=== PATIENT | female | born 1935 | race Caucasian/White ===

== ENCOUNTER 2017-02-11 10:57 | Day surgery (SDC) | payer MEDICARE ==
[~2017-02-11] VITALS: Ht 162.6 cm; Wt 54.0 kg
[~2017-02-11 10:57] MED LIST: ATEN1TAB74 PO; CALC600T34 PO; RISE30 PO
[2017-02-11 12:02] VITALS: BP 146/73; PULSE 65; RESP 18; TEMP 98; O2SAT 96
[2017-02-11] MEDS ORDERED: BRIM0.2S4 EACH EYE (12:23)
[2017-02-11] MEDS ORDERED: DESM1SPR NASAL (12:23)
[2017-02-11] MEDS ORDERED: HYDR-2376 PO (12:23)
[2017-02-11] MEDS ORDERED: PRED50 PO (12:23)
[2017-02-11] MEDS ORDERED: BENA25TA3 PO (12:23)
[2017-02-11] MEDS ORDERED: LISI40TA PO (12:23)
[2017-02-11] MEDS ORDERED: OMEGCAP PO (12:23)
[2017-02-11] MEDS ORDERED: TERB250T4 PO (12:23)
[2017-02-11] MEDS ORDERED: HEPARIN-NS/PF INJ 500 ML ONE (12:46)
[2017-02-11] MEDS ORDERED: MIDAZOLAM HCL 2 MG/2 ML VIAL ONE (12:50)
[2017-02-11] MEDS ORDERED: HEPARIN SODIUM - IV 10,000 UNITS/10 ML VIAL ONE (13:02)
[2017-02-11] MEDS ORDERED: SODIUM CHLOR 0.9% 250 ML INJ 250 ML IV PRN (13:30)
[2017-02-11] MEDS ORDERED: METOCLOPRAMIDE HCL 10 MG/2 ML VIAL IV PRN (13:30)
[2017-02-11] MEDS ORDERED: BACITRACIN OINT 0.9 GM PKT TOP ONE (13:30)
[2017-02-11] MEDS ORDERED: ONDANSETRON HCL 4 MG/2 ML VIAL IV PRN (13:30)
[2017-02-11] MEDS ORDERED: ATROPINE SULFATE 1 MG/ML VIAL IV PRN (13:30)
[2017-02-11] MEDS ORDERED: LIDOCAINE HCL 1% 50 ML VIAL INFIL PRN (13:30)
[2017-02-11] MEDS ORDERED: LORazepam 2 MG/ML VIAL IV PRN (13:30)
[2017-02-11] MEDS ORDERED: MISC INFORMATION XX ONE (13:30)
--- NOTE | 2017-02-11 13:33 | CATHPROC ---
Patient Name: REENA SALDAÑA Study #: [id number] Initial MD: Tim Oviedo Date of : 1935 Study Date: 02/11/2017 Cardiac Catheterization Report 02/11/2017 1:27:05 PM Financial #: [id number] 1 of 10 Patient Name: REENA SALDAÑA Study #: [id number] Initial MD: Tim Oviedo Date of : 1935 Study Date: 02/11/2017 Entire Case Report Patient Information Patient Name REENA SALDAÑA Date of 1935 Age 81 years Financial # [id number] Gender F AlternateID Lab Number 5 Accession # Room Number Height (in) 66.0 Height (cm) 167.6 BSA 1.62 Weight (lbs) 122.0 Weight (kg) 55.5 Patient Address/Phone Number Home Address [facility] Home Phone Number [phone] [facility] [id number] Study Information Study Number Scheduled Start Study Start [id number] 02/11/2017 Feb 11 2017 12:28PM Referring Institution Admit Source Facility Department 1 [facility] [employer] Physician and Clinical Staff Initial Tim Elliott Gis Application Developer Rafia Patel,MAILE Gis Application Developer Santosh Harris,MAILE Recorder John Mccord,RT(R) Scrub Jeffrey PatinoRT(R) Procedures Performed Procedure Location (Site) Vessel Name Angiogram (manual) Fem R. Com (R7) Femoral Art Angiogram (manual) Iliac R. Com. (R4) Illiac Art. Angiogram (manual) Popliteal R (R10) Popliteal Angiogram (manual) SFA (right) Femoral Art Angiogram (manual) Tib, Ant. (right) Popliteal Wire insertion Fem Art (left) Femoral Art 02/11/2017 1:27:05 PM Financial #: [id number] 2 of 10 Patient Name: REENA SALDAÑA Study #: [id number] Initial MD: Tim Oviedo Date of : 1935 Study Date: 02/11/2017 Equipment Time Policy Writer Sales Description Size Mfg Part Number Used/Scraped 12:43 CORDIS/ SAVANNAH RIM SUPER TORQUE CATHETER FR 5 [id number] Used 13:17 DAIG/ST. ROMAN MEDICAL ANGIOSEAL, FR6 VIP FR 6 [id number] Used 12:43 MALLINCKRODT SYRINGE, ANGIOMAT 150ML 150ML [id number] Used 12:43 MEDLINE INDUSTRIES PACK, CCL CUSTOM * [id number] Used 12:43 MEDLINE PACER PEN, SKIN DUAL W/ RULER * [id number] Used 12:43 Solar [employer] MEDICAL WIRE, EXCHANGE 260CM 3MMJ 260CM [id number] Used 12:43 NAMIC MANIFOLD, 4 PORT * [id number] Used 12:43 NAMIC TUBING, HIGH PRESSURE 48" 48" [id number] Used 13:04 NAMIC TUBING, HIGH PRESSURE 48" 48" [id number] Used 12:43 NYCOMED OMNIPAQUE, 300 MG, 100ML 100ML [id number] Used 12:43 NYCOMED OMNIPAQUE, 300 MG, 100ML 100ML [id number] Used 12:43 THOMAS MEDICAL BLANKET,WARM AIR CCL * [id number] Used 12:43 TERUMO MEDICAL SHEATH, FR5 TERUMO (10CM) FR 5 [id number] Used SHEATH, FR6 PINNACLE 13:01 TERUMO MEDICAL/SAVANNAH FR 6 [id number] Used DESTINATION 90CM WIRE, ANGLE GLIDE STIFF .035 12:43 TERUMO MEDICAL/SAVANNAH 260CM [id number] Used 260CM Equipment Model, Serial, Lot Number and Expiration Data Description Model Number Serial Number Lot Number Expiration Date ANGIOSEAL, FR6 VIP [id number] 11-06-2017 Insurance Information Insurance Payor Private Health Insurance Third Alliance Party Third Alliance Party Number [facility] [id number] History: Current Medications Medication Dosage/Unit Route Frequency Last Date/Time Taken LISINOPRIL TAGAMET 02/11/2017 1:27:05 PM Financial #: [id number] Patient Name: REENA SALDAÑA Study #: [id number] Initial MD: Tim Oviedo Date of : 1935 Study Date: 7 History: Allergies Allergy Reaction Dilaudid fast heart rate ivpdye rash novacaine rash tape odom Keflex Meloxicam Methotrexate Sulfa Fosamax History: Risk Factors Family History of Hypertension Dyslipidemia Previous PR Previous Heart Failure Premature CAD Yes Yes No No No Prior Valve Prior PCI Prior CABG Surgery No No No Cerebrovascular Peripheral Artery Chronic Lung On Dialysis Diabetes Disease Disease Disease No No Yes No No History: Stress Tests Stress or Imaging Studies Performed No History: Other Disease Selection Items HTN History: Other Current Smoker No Labs Hgb (g/dl) Hct (%) RBC (MIL/MM3) WBC (l/cumm) Platelets (thousands) 12.00-18.00 37.00-55.00 4.80-6.20 4.80-10.80 140.00-450.00 12.7 38.3 4.7 11.2 354 Glucose (mg/dl) BUN (mg/dl) Creatinine (mg/dl) BUN:Creatinine (1:x) 60.00-110.00 8.00-20.00 0.10-9.00 10.00-20.00 105 13 0.6 21.7 02/11/2017 1:27:05 PM Financial #: [id number] Patient Name: REENA SALDAÑA Study #: [id number] Initial MD: Tim Oviedo Date of : 1935 Study Date: 017 Na (meq/l) K (meq/l) Cl (meq/l) CO2 (mmol/L) Ca (mg/dl) 138.00-146.00 3.80-5.10 101.00-111.00 23.00-30.00 9.00-10.50 134 4.6 95 22 9.1 PT (sec) INR (PTT:PT) 9.40-11.40 0.50-2.00 10.1 1 CPK-MB (ng/ML) 0.00-7.00 Not Drawn Medication Medication Total Dose (Bolus/Oral) Medication Total Dosage/Unit 1% XYLOCAINE 20 mL FENTANYL 50 mcg HEPARIN 3000 units VERSED 2 mg Medications (Bolus/Oral) Medication Time Given Dosage/Unit Administered By Reason VERSED 02/11/2017 12:52:49 PM 1 mg Santosh Harris 1 mg VERSED given in lab by Santosh Harris RN in Right Antecubital via Peripheral IV. FENTANYL 02/11/2017 12:52:53 PM 50 mcg Santosh Harris 50 mcg FENTANYL given in lab by Santosh Harris, MAILE in Right Antecubital via Peripheral IV. 1% XYLOCAINE 02/11/2017 12:53:37 PM 20 mL Tim Oviedo 20 mL 1% XYLOCAINE given in lab by Tim Oviedo in Left Groin via Subcutaneous. VERSED 02/11/2017 12:59:15 PM 1 mg Santosh Harris 1 mg VERSED given in lab by Santosh Harris, MAILE in Right Antecubital via Peripheral IV. HEPARIN 02/11/2017 1:03:08 PM 3000 units Santosh Harris 3000 units HEPARIN given in lab by Santosh Harris RN in Right Antecubital via Peripheral IV. Medication (Drip) Medication Time Given Dosage/Unit Concentration/Unit Diluent (ml) Solutio n IV Solutions 02/11/2017 12:40:16 PM 0 mL (IV) 500 NaCl .9 IV Solutions given in lab by Rafia Patel RN in Right Antecubital via Peripheral IV. Pump/Drip Fl ow = 20 ml/hr using NaCl .9. 02/11/2017 1:27:05 PM Financial #: [id number] Patient Name: REENA SALDAÑA Study #: [id number] Initial MD: Tim Oviedo Date of : 1935 Study Date: 02/11/2017 Initial Case Assessment Cardiovascular HR Rhythm NIBP Chest Pain 72 Sinuis 143/117 0 Edema Present Skin color Skin None Normal Warm Dry Circulatory - Right Pulses Dorsalis Pedis Posterior Tibial Femoral 0 0 2 Scale (0,1,2,3,4,d) Circulatory - Left Pulses Dorsalis Pedis Posterior Tibial Femoral d d 2 Scale (0,1,2,3,4,d) Neurological State Oriented to time-place- Alert Moves all extremities person Respiration - General Respiration Rate SpO2 (%) O2 (lpm) (B/min) 19 98 0 Final Case Assessment Circulatory - Right Pulses Dorsalis Pedis Posterior Tibial Femoral 1 1 2 Scale (0,1,2,3,4,d) Circulatory - Left Pulses Dorsalis Pedis Posterior Tibial Femoral d d 2 Scale (0,1,2,3,4,d) Neurological State Oriented to time-place- Alert Moves all extremities person Respiration - General Respiration Rate SpO2 (%) O2 (lpm) (B/min) 18 98 0 02/11/2017 1:27:05 PM Financial #: [id number] 6 of 10 Patient Name: REENA SALDAÑA Study #: [id number] Initial MD: Tim Oviedo Date of : 1935 Study Date: 02/11/2017 Vitals Summary Pain Time HR NIBP SpO2 Resp Temp EtCO2 Apnea Dino Rendon Comment Level 12:33:33 143/117 98.0 10 0 2 12:38:38 85 178/100 99.0 21 10 0 2 12:43:07 79 161/84 97.0 17 10 0 2 12:48:02 83 175/87 97.0 15 10 0 2 12:53:03 65 164/95 98.0 13 10 0 2 12:58:04 83 140/87 96.0 18 10 0 2 13:03:01 80 146/76 90.0 19 10 0 2 13:08:02 83 136/74 91.0 14 10 0 2 13:12:57 78 146/93 97.0 18 10 0 2 13:18:02 82 138/83 98.0 15 10 0 2 13:23:40 79 148/91 99.0 18 10 0 2 Dino Score Summary Time Activity Resp Circ LOC Color Total Score 12:33:33 2 2 2 2 2 10 12:38:38 2 2 2 2 2 10 12:43:07 2 2 2 2 2 10 12:48:02 2 2 2 2 2 10 12:53:03 2 2 2 2 2 10 12:58:04 2 2 2 2 2 10 13:03:01 2 2 2 2 2 10 13:08:02 2 2 2 2 2 10 13:12:57 2 2 2 2 2 10 13:18:02 2 2 2 2 2 10 13:23:40 2 2 2 2 2 10 02/11/2017 1:27:05 PM Financial #: [id number] 7 of 10 Patient Name: REENA SALDAÑA Study #: [id number] Initial MD: Tim Oviedo Date of : 1935 Study Date: 02/11/2017 Dino Score Definition Table Activity - 0 Activity - 1 Activity - 2 No Movement to Command Weak Hand Grasp Lift Head, Good Hand Grasp Respiration - 0 Respiration - 1 Respiration - 2 Apneic or Obstructed Shallow Breath, Airway Adjunct Deep Breath, Cough Freely Circulation - 0 Circulation - 1 Circulation - 2 B/P > 50% Admission B/P B/P > 20-50% Admission B/P B/P Stable X3 Level of Consciousness - 0 Level of Consciousness - 1 Level of Consciousness - 2 Not Responding Arousable On Calling Awake and Aware Color - 0 Color- 1 Color - 2 Cyanotic Lips, Nailbed, Skin Pale, Dusky [place] Or Normal Chronological Log Time Study Chronological Log 12:28:03 Patient arrived via Bed. 12:28:05 Patient Name, D.O.B, / Armband Verified By R.N. 12:28:06 Consent signed by the physician and the patient and verified by the [employer] staff. 12:28:07 Pre-op and post- op instructions given; patient acknowledges understanding of instruction s. 12:28:07 Verbal Stimulation=2 Physical Stimulation=2 Airway=2 Respiration=2 TOTAL=8. (0=absent, 1= limited, 2=present) Vitals capture started with the following parameters, Patient=Adult, Interval=5 min, Initial Tcrpwgur=650 mmHg, 12:32:25 Deflation Rate=5 mmHg 12:33:33 DUHI=234/117 mmhg, SpO2=98.0 %, Pain=0, Dino=10, Rendon=2 12:38:14 MD arrived. 12:38:38 HR=85 bpm, TAPV=511/100 mmhg, SpO2=99.0 %, Resp=21 B/min, Pain=0, Dino=10, Rendon=2 12:39:15 Presedation assessment performed by Wholesale [employer] Retail Merchant RN. 12:39:22 Patient has been NPO for More than 6Hrs. 12:39:23 Skin Breakdown- right lower leg wounds. Wrapped in bandage to foot. 12:39:52 Patient Warmer Placed on the Table. 12:39:54 João Prominences Protected 12:39:57 A # 20 IV was noted in the Antecubital (right). Grade = 0 IV Solutions given in lab by Rafia Patel, RN in Right Antecubital via Peripheral IV. Pump /Drip Flow = 20 ml/hr 12:40:16 using NaCl .9. 12:40:50 History and physical on the chart or being dictated. Assessment: Initial Case, HR=72 BPM, Rhythm=Sinuis, AUKS=976/117 mmhg, Chest Pain=0, Edema=No ne, Color=Normal, Skin = Warm, Dry Right Pulses: Lowell Ped=0, Post Tib=0, Femoral=2 12:40:51 Left Pulses: Lowell Ped=d, Post Tib=d, Femoral=2 Neurological: State=Alert, Ox3, SANDOVAL Respiration: Resp=19 B/min, SpO2=98 %, O2=0 lpm 12:43:07 HR=79 bpm, MEGG=048/84 mmhg, SpO2=97.0 %, Resp=17 B/min, Pain=0, Dino=10, Rendon=2 12:48:02 HR=83 bpm, EMLV=992/87 mmhg, SpO2=97.0 %, Resp=15 B/min, Pain=0, Dino=10, Rendon=2 02/11/2017 1:27:05 PM Financial #: [id number] Patient Name: REENA SALDAÑA Study #: [id number] Initial MD: Tim Oviedo Date of : 1935 Study Date: 02/11/2017 12:48:59 Bilateral groins prepped with 2% chlorhexidine, and with a 3 min. waiting time. Time Out. Correct patient, correct procedure,correct physician, ,power injector loaded or not l oaded with contrast with 12:52:22 surgical team present. Time Out Concurred by MD, individual staff and RESEARCH PROGRAM MANAGER in procedure Time Out. Correct patient, correct procedure,correct physician, ,power injector loaded or not l oaded with contrast with 12:52:46 surgical team present. Time Out Concurred by MD, individual staff and RESEARCH PROGRAM MANAGER in procedure 12:52:49 1 mg VERSED given in lab by Santosh Harris, RN in Right Antecubital via Peripheral IV. 12:52:53 50 mcg FENTANYL given in lab by Santosh Harris, RN in Right Antecubital via Peripheral IV. 12:53:03 HR=65 bpm, FKSN=821/95 mmhg, SpO2=98.0 %, Resp=13 B/min, Pain=0, Dino=10, Rendon=2 12:53:17 Case Start 12:53:37 20 mL 1% XYLOCAINE given in lab by Tim Oviedo in Left Groin via Subcutaneous. 12:55:41 Access site was Left Femoral Artery. 12:55:47 A SHEATH, FR5 TERUMO (10CM) FR 5 was advanced into the Fem Art (left) using the Percutaneou s technique. 12:56:33 Pressure channel 1 zeroed. A RIM SUPER TORQUE CATHETER FR 5 was advanced over a wire. OMNIPAQUE, 300 MG, 100ML 100ML was u sed for 12:56:46 injections. 12:58:04 HR=83 bpm, SSCW=293/87 mmhg, SpO2=96.0 %, Resp=18 B/min, Pain=0, Dino=10, Rendon=2 12:58:38 Iliac R. Com. (R4) angiogram, manually injected. 12:58:49 Fem R. Com (R7) angiogram, manually injected. 12:59:00 SFA (right) angiogram, manually injected. 12:59:15 1 mg VERSED given in lab by Santosh Harris, MAILE in Right Antecubital via Peripheral IV. 12:59:22 Popliteal R (R10) angiogram, manually injected. 12:59:32 Tib, Ant. (right) angiogram, manually injected. 12:59:54 Tib, Ant. (right) angiogram, manually injected. 13:01:47 A WIRE, ANGLE GLIDE STIFF .035 260CM 260CM was inserted via Fem Art (left). 13:02:05 Catheter was removed w/o difficulty A SHEATH, FR6 PINNACLE DESTINATION 90CM FR 6 was exchanged in the Fem Art (left). This was nece ssary in order 13:02:25 to accomodate a larger catheter. 13:03:01 HR=80 bpm, QZSZ=277/76 mmhg, SpO2=90.0 %, Resp=19 B/min, Pain=0, Dino=10, Rendon=2 13:03:08 3000 units HEPARIN given in lab by Santosh Harris, RN in Right Antecubital via Peripheral I V. 13:08:02 HR=83 bpm, UKDA=966/74 mmhg, SpO2=91.0 %, Resp=14 B/min, Pain=0, Dino=10, Rendon=2 13:08:13 Tib, Ant. (right) angiogram, manually injected. 13:08:22 Tib, Ant. (right) angiogram, manually injected. 13:08:35 Tib, Ant. (right) angiogram, manually injected. 13:10:01 SFA (right) angiogram, manually injected. 13:11:47 Tib, Ant. (right) angiogram, manually injected. 13:12:57 HR=78 bpm, XZUU=902/93 mmhg, SpO2=97.0 %, Resp=18 B/min, Pain=0, Dino=10, Rendno=2 13:15:38 Activated Clotting Time Drawn 13:17:15 An injection in the Fem Art (left) was made through the SHEATH, FR6 PINNACLE DESTINATION 90 CM FR 6. 13:18:02 HR=82 bpm, NIGA=809/83 mmhg, SpO2=98.0 %, Resp=15 B/min, Pain=0, Dino=10, Rendon=2 13:18:22 ANGIOSEAL, FR6 VIP FR 6 placement in the Fem Art (left) 02/11/2017 1:27:05 PM Financial #: [id number] 9 of 10 Patient Name: REENA SALDAÑA Study #: [id number] Initial MD: Tim Oviedo Date of : 1935 Study Date: 02/11/2017 13:18:47 Case End 13:18:51 No case complications noted. 13:18:52 Cine recording checked. 13:20:12 ACT (Normal Range 90-180) = 179 13:21:52 Bedside Report will be given. Assessment: Final Case Right Pulses: Lowell Ped=1, Post Tib=1, Femoral=2 13:21:59 Left Pulses: Lowell Ped=d, Post Tib=d, Femoral=2 Neurological: State=Alert, Ox3, SANDOVAL Respiration: Resp=18 B/min, SpO2=98 %, O2=0 lpm 13:23:40 HR=79 bpm, GTPS=346/91 mmhg, SpO2=99.0 %, Resp=18 B/min, Pain=0, Dino=10, Rendon=2 13:26:41 Vitals capture stopped. 13:28:46 Patient moved to stretcher End Study - Contrast Media Used In Study Contrast Total Opened (mL) Total Used (mL) Total Wasted (mL) Omnipaque 150 135 15 End Study - Maximum Contrast Load Max Contrast Load (mL) 462.1 End Study - Radiation Exposure Fluoro Time (minutes) 5.1 End Study - Patient Disposition Complications Transferred To Interventional Outcome No Outpatient Bed No attempt made 02/11/2017 1:27:05 PM Financial #: [id number]
[2017-02-11] MEDS ORDERED: IOHEXOL 350 MG/ML 100 ML BTL (for Cath Lab) OTHER ONE (15:29)
--- NOTE | 2017-02-11 20:34 | MA ---
cc: RJ RAMÍREZ DATE 02/11/17 Peripheral angiography. PROCEDURE PERFORMED 1. Fluoroscopy with interpretation 2. Right lower extremity peripheral angiography with first, second, third order visualization interpretation. METHOD The risks, benefit, alternatives were discussed with the patient. The patient understood, consented to procedure. PROCEDURE The patient was brought to the catheterization lab and placed supine on catheterization table. Left groin was prepped and draped in sterile fashion. Left groin was anesthetized with 2% lidocaine. The left common femoral was cannulated and a 5-Polish 11 centimeter sheath was placed without difficulty. Right lower extremity peripheral angiography: 1. Right common, internal, external iliac arteries have minor luminal irregularities. Right common femoral and profunda artery is widely patent. The right superficial artery has minor luminal irregularities. Right popliteal artery is widely patent. There is three-vessel runoff below the knee the right lower extremity, the posterior tibial trunk proximally has a 50% stenosis present. The remainder of the vessel has only minor luminal irregularities. We used a 0.035 inch 260 cm stiff angle Glidewire to navigate through a rim catheter down into the right superficial femoral artery. A 6-Polish 90-cm Terumo run through pinnacle sheath was then advanced up-and-over the arch and selectively engaged to the right popliteal artery. Multiple selective digital subtraction angiograms were performed with long delay to evaluate venous filling. The CAT scan had suggested an arteriovenous fistula due to early venous filling on the CTA. Despite several angulations prolonged arterial injections we saw no evidence of AV fistula. Dr. Joe Gardner, vascular surgeon was also present to assist with the case. The sheath was removed. 6-Polish Angio-Seal was placed with good hemostasis. CONCLUSION 1. Moderate right posterior tibial, peroneal trunk stenosis. 2. No evidence for right lower extremity AV fistula. 3. Venous insufficiency with right lower extremity edema. PLAN Unfortunately, we were not able to identify any [id number] shunting through an AV fistula which would have possibly explain the unilateral swelling of the right lower extremity. At this point it does seem that her swelling is likely related to venous insufficiency. May have to consider compression therapy with close monitoring of the wound. MD CARLI Deleon/MARIANNA /1:32 PM 8:20 PM MILAGROS
== END 2017-02-11 16:30 | disposition home or self-care (01) ==
LOC: HDOC 10:57 → HDIC 10:58 → HDOC 16:30
PROVIDERS: ATTEND Internal Medicine
DX: I87.2 Venous insufficiency (chronic) (peripheral) (principal); I70.0 Atherosclerosis of aorta; E78.5 Hyperlipidemia, unspecified; I10 Essential (primary) hypertension; R68.89 Other general symptoms and signs; E23.2 Diabetes insipidus
CPT/HCPCS: 36247; 75710; 85002; 86850; 86900; 86901; C1760; C1769; C1893; G0269; J1644; J2250; J3010; Q9967